=== PATIENT | male | born 1995 | race American Indian/Alaskan Native ===

== ENCOUNTER 2018-10-02 15:21 | Emergency (ER) | payer BC ==
[2018-10-02 15:28] VITALS: BP 113/76
--- NOTE | 2018-10-02 15:30 | Emergency Department Report ---
Blank Doc - Documentation Documentation: This is a 22-year-old male that presents with upper abdominal pain. Was told he has liver problems but denies knowing what it was. Denies any n/v. This initial assessment/diagnostic orders/clinical plan/treatment(s) is/are subject to change based on patient's health status, clinical progression and re- assessment by fellow clinical providers in the ED. Further treatment and workup at subsequent clinical providers discretion. Patient/guardians urged not to elope from the ED as their condition may be serious if not clinically assessed and managed. Initial orders include: 1- Patient sent to [facility] for further evaluation and treatment 2- labs 3- UA
[2018-10-02 16:23] LABS: Basophils % (Auto) 0.7 % (0.0-1.8); Eosinophils # (Auto) 0.3 K/mm3 (0.0-0.4); Eosinophils % (Auto) 4.6 % (0.0-4.3); Hematocrit 42.8 % (35.5-45.6); Hemoglobin 14.6 gm/dl (11.8-15.2); Lymphocytes # (Auto) 1.1 K/mm3 (1.2-5.4); Lymphocytes % (Auto) 16.3 % (13.4-35.0); Mean Corpuscular HGB Conc 34 % (32-34); Mean Corpuscular Volume 85 fl (84-94); Monocytes % (Auto) 14.9 % (0.0-7.3); Platelet Count 363 K/mm3 (140-440); Red Blood Count 5.05 M/mm3 (3.65-5.03)
[2018-10-02 16:42] LABS: Alanine Aminotransferase 89 units/L (7-56); Albumin 4.1 g/dL (3.9-5); BUN/Creatinine Ratio 13; Blood Urea Nitrogen 14 mg/dL (9-20); Hemolysis Index 2
[2018-10-02 16:45] LABS: Bilirubin,Direct < 0.2 mg/dL (0-0.2)
--- NOTE | 2018-10-02 18:33 | Emergency Department Report ---
ED Abdominal Pain HPI - General Chief Complaint: Abdominal Pain Stated Complaint: LIVER PAIN,LUMPS ON BODY Time Seen by Provider: 10/02/18 15:29 Source: patient Mode of arrival: Ambulatory Limitations: No Limitations - History of Present Illness Initial Comments: 22-year-old -Citizen Of [place] male all with a past medical history of known liver disease secondary to possible EtOH position emergency department complaining of a sense of feeling of worsening symptoms. States he is having these bumps or nodules. Apparently over his body. She feels maybe this is secondary to his liver issue. He has no formal diagnosis was states that he was taking some medication prescribed by the GI to help to control his liver enzymes Complaint: abdominal pain Location: RUQ Radiation: none, RUQ Severity: moderate Severity scale (0 -10): 7 Quality: cramping, stabbing, aching Consistency: constant Improves With: nothing Worsens With: nothing Associated Symptoms: nausea. denies: vomiting, constipation, dysuria, melena, hematuria, anorexia, syncope - Related Data Previous Rx's Medication Instructions Recorded Last Taken Type Ondansetron [Zofran ODT TAB] 8 mg PO Q12HR #10 tab.rapdis 10/02/18 Unknown Rx Allergies Allergy/AdvReac Type Severity Reaction Status Date / Time bee venom protein (honey bee) Allergy Unknown Verified 10/02/18 15:25 ants Allergy Unknown Uncoded 10/02/18 15:25 ED Review of Systems ROS: Stated complaint: LIVER PAIN,LUMPS ON BODY Other details as noted in HPI Constitutional: denies: chills, fever Eyes: denies: eye pain, eye discharge, vision change ENT: denies: ear pain, throat pain Respiratory: denies: cough, shortness of breath, wheezing Cardiovascular: denies: chest pain, palpitations Endocrine: no symptoms reported Gastrointestinal: denies: abdominal pain, nausea, diarrhea Genitourinary: denies: urgency, dysuria Musculoskeletal: denies: back pain, joint swelling, arthralgia Skin: denies: rash, lesions Neurological: denies: headache, weakness, paresthesias Psychiatric: denies: anxiety, depression Hematological/Lymphatic: denies: easy bleeding, easy bruising ED Past Medical Hx - Past Medical History Previous Medical History?: No - Surgical History Past Surgical History?: No - Social History Smoking Status: Never Smoker Substance Use Type: None - Medications Home Medications: Home Medications Medication Instructions Recorded Confirmed Last Taken Type Ondansetron [Zofran ODT TAB] 8 mg PO Q12HR #10 tab.rapdis 10/02/18 Unknown Rx ED Physical Exam - General Limitations: No Limitations General appearance: alert, in no apparent distress - Head Head exam: Present: atraumatic, normocephalic - Eye Eye exam: Present: normal appearance, PERRL, EOMI. Absent: scleral icterus, conjunctival injection Pupils: Present: normal accommodation - ENT ENT exam: Present: normal exam, normal orophraynx, mucous membranes moist - Neck Neck exam: Present: normal inspection, full ROM. Absent: lymphadenopathy - Respiratory Respiratory exam: Present: normal lung sounds bilaterally. Absent: respiratory distress, wheezes, rales, rhonchi, chest wall tenderness, accessory muscle use, decreased breath sounds - Cardiovascular Cardiovascular Exam: Present: regular rate, normal rhythm. Absent: bradycardia, tachycardia, irregular rhythm, systolic murmur, diastolic murmur, rubs, gallop - GI/Abdominal GI/Abdominal exam: Present: soft, normal bowel sounds. Absent: tenderness, guarding, hyperactive bowel sounds, hypoactive bowel sounds, organomegaly, bruit - Rectal Rectal exam: Present: deferred - Extremities Exam Extremities exam: Present: normal inspection, full ROM - Back Exam Back exam: Present: normal inspection. Absent: CVA tenderness (R), CVA tenderness (L), muscle spasm - Neurological Exam Neurological exam: Present: alert, oriented X3 - Psychiatric Psychiatric exam: Present: normal affect, normal mood - Skin Skin exam: Present: warm, dry, intact, normal color. Absent: rash ED Course Vital Signs 10/02/18 10/02/18 15:28 22:55 Temperature 98.5 F Pulse Rate 112 H 85 Respiratory 18 17 Rate Blood Pressure 113/76 [Right] O2 Sat by Pulse 98 96 Oximetry ED Medical Decision Making - Lab Data Result diagrams: 10/02/18 15:42 10/02/18 15:42 Critical care attestation.: If time is entered above; I have spent that time in minutes in the direct care of this critically ill patient, excluding procedure time. ED Disposition Clinical Impression: RUQ abdominal pain, Elevated liver enzymes Disposition: TO HOME OR SELFCARE Is pt being admited?: No Does the pt Need Aspirin: No Condition: Stable Instructions: Acute Abdominal Pain (ED), Abdominal Pain (ED), Ultrasound (GEN) Additional Instructions: Please refrain from utilization of Tylenol. Be sure to follow up with the events manager for further evaluation of the right upper quadrant pain and elevated liver enzymes. Refrain from utilization of alcohol as well Prescriptions: Ondansetron [Zofran ODT TAB] 8 mg PO Q12HR #10 tab.rapdis Referrals: [facility] [Provider Group] - 3-5 Days Forms: Work/School Release Form(ED)
[2018-10-02 19:02] LABS: Bilirubin,Urine NEG (Negative); Blood,Urine NEG (Negative); Color,Urine Yellow (Yellow)
--- NOTE | 2018-10-02 20:54 | Ultrasound Report ---
PROCEDURE: Limited abdominal ultrasound. TECHNIQUE: Real-time sonography was performed of the right upper quadrant of the abdomen with image documentation. HISTORY: ruq pain with elevated liver enzymes COMPARISONS: None. FINDINGS: The pancreas appears normal. The liver has uniform echogenicity without focal masses. The proximal po rtion of the abdominal aorta has a normal caliber. The inferior vena cava is patent. The right kidney appears normal in size and has normal echogenicity. There is no hydronephrosis. The gallbladder is a dequately distended with normal wall thickness. There are no gallstones. The common hepatic duct henry ures 2.6 mm. The portal vein is patent by color flow imaging. IMPRESSION: No significant abnormality. This document is electronically signed by Danie Levin MD., October 02 2018 08:52:19 PM ET
== END 2018-10-02 22:55 | disposition home or self-care (01) ==
LOC: ED 15:21
DX: R10.11 Right upper quadrant pain (principal); R94.5 Abnormal results of liver function studies; Z91.030 Bee allergy status
CPT/HCPCS: 36415; 76705; 80048; 80076; 81001; 83690; 85025; 99284